=== PATIENT | male | born 1965 | race African-American/Black ===

== ENCOUNTER 2017-10-29 17:35 | Observation (INO) | payer OTHER ==
[~2017-10-29] VITALS: Ht 182.9 cm; Wt 102.5 kg
--- NOTE | 2017-10-29 17:47 | NUR ---
WHEELCHAIR TO ER ROOM 12 TO BED,EKG UPON ARRIVAL. DR CROCKER SUMMONED TO BEDSIDE
[2017-10-29] MEDS ORDERED: CIALIS10 MG PO (17:49)
[2017-10-29] MEDS ORDERED: ASPIRIN81 MG PO (17:49)
[2017-10-29] MEDS ORDERED: VERAPAMIL240 M1 PO (17:49)
--- NOTE | 2017-10-29 18:05 | NUR ---
IV ESTABLISHED, LABS DRAWN. EKG COMPLETED. PT ON CARDIAC/O2/BP MONITOR. PT C/O CHEST PAIN WHILE DRIVING DOWN [address] WAY HOME TO [facility]. STATES CP IS SHARP IN LEFT CHEST THAT RADIATES TO BACK AND SOMETIMES DOWN LEFT ARM. PT DENIES SOB. DENIES N/V/D. DENIES COUGH. LUNGS CLEAR, BREATHING EVEN & UNLABORED. ABD SOFT & NONTENDER. EYES PERRLA @3. NEUROS WNL. SKIN DRY & WARM. PULSES STRONG, CAP REFILL <3 SEC. PT AWARE HE WILL BE ADMITTED TO HOSPITAL.
[2017-10-29] MEDS ORDERED: FISH OIL1 CAP (18:12)
[2017-10-29 18:34] LABS: HEMATOCRIT 39.1 % (39.0-50.0); HEMOGLOBIN 12.8 g/dl (14.0-18.0); IMMATURE GRANULOCYTES 0.1 % (0.0-1.0); MEAN CORPUSCULAR HGB 27.8 pG CALC (26.0-32.0); MEAN CORPUSCULAR HGB CONC 32.7 g/L CALC (32.0-36.0); NEUT# 3.28 thou/uL (1.82-7.42); RED BLOOD COUNT 4.6 mill/uL (4.70-6.10); RED CELL DISTRI WIDTH 14.2 % (11.5-15.5)
[2017-10-29 18:51] LABS: ANION GAP 17 (6-22 (CALC)); BUN 12 mg/dL (9-20); BUN/CREATININE RATIO 17 (12-20 (CALC)); CARBON DIOXIDE 26 mmol/l (22-30); CHLORIDE 105 mmol/l (95-108); CREATININE 0.8 mg/dL (0.7-1.3); GFR > 60 ML/MIN (>=60 (CALC)); GFR FOR AFR.AMER. > 60 ML/MIN (>=60 (CALC)); POTASSIUM 4.5 mmol/l (3.5-5.1); SODIUM 143 mmol/l (137-146)
--- NOTE | 2017-10-29 19:02 | NUR ---
REPORT GIVEN TO DEEJAY LITTLE TO TAKE OVER CARE.
--- NOTE | 2017-10-29 19:16 | NUR ---
Pt resting comfortably at this time, awaiting admission orders & room number.
--- NOTE | 2017-10-29 19:52 | NUR ---
TELE BOX PLACED ON PT, REPORT CALLED TO [facility]AL[facility]. TRANSPORTED TO ROOM 287 VIA STRETCHER.
[2017-10-29 19:55] VITALS: BP 156/102
--- NOTE | 2017-10-29 19:55 | NUR ---
PT ARRIVED TO UNIT VIA STRETCHER WITH ER STAFF. AMBULATED TO BED INDEPENDENTLY. ALERT AND ORIENTED. CURRENTLY C/O MIDSTERNAL CHEST PAIN 3/10. STATES THAT IS WAS A 0/10 AND HAS INCREASED. RESPIRATIONS EVEN AND UNLABORED ON ROOM AIR. ORIENTED TO ROOM AND CALL LIGHT SYSTEM. VS STABLE. SAFETY MEASURES IN PLACE. CALL LIGHT WITHIN REACH.
--- NOTE | 2017-10-29 22:39 | NUR ---
PT CONTINUED TO C/O INCREASING CHEST PAIN UP TO 7/10. ADDITIONAL DOSE OF MORPHINE GIVEN IV WITH GOOD EFFECT. CURRENTLY STATES THAT PAIN IS 3/10 AND IS SLIGHTLY SHARP. RESPIRATIONS REMAIN EVEN AND UNLABORED ON ROOM AIR; 98% OXYGEN SATURATION. RESTING COMFORTABLY IN BED. ENCOURAGED TO NOTIFY NURSE OF ANY CHANGE OR WORSENING IN CHEST PAIN. STATES UNDERSTANDING. CALL LIGHT WITHIN REACH.
[2017-10-30 00:12] VITALS: BP 124/79
[2017-10-30 04:46] VITALS: BP 127/83
--- NOTE | 2017-10-30 05:15 | NUR ---
PT STATED THAT PAIN INCREASED AGAIN TO 02/21. MORPHINE GIVEN WITH F/U OF 2/10. PT HAS HAD MILD NAUSEA; GINGERALE AND CRACKERS EFFECTIVE. NO OTHER COMPLAINTS SINCE ADMISSION. USES CALL LIGHT PRN FOR NEEDS. SAFETY MEASURES IN PLACE. CALL LIGHT WITHIN REACH.
--- NOTE | 2017-10-30 07:15 | NUR ---
REPORT RECEIVED FROM DEEJAY BOYD. PT SUPINE IN BED. REPORTS RELIEF OF CHEST PAIN FROM RECENT MEDICATION WITH MORPHINE. PLAN OF CARE DISCUSSED. REPORTING OF CONCERNS ENCOURAGED. CALL LIGHT REVIEWED AND IN REACH. PT STATES UNDERSTADNING OF INFORMATION.
[2017-10-30 08:04] VITALS: BP 150/92
--- NOTE | 2017-10-30 08:36 | NUR ---
PT REPORTS RETURN OF CHEST PAIN, 5 ON SCALE OF 0-10, "SQUEZZING" SENSATION MIDSTERNAL RADIATING TO BACK. MORPHINE IV ADMINISTERED. WILL MONITOR FOR EFFECTIVENESS.
[2017-10-30 08:54] LABS: CHOLESTEROL HDL RATIO 4.3 (<4.4 (CALC))
[2017-10-30 09:26] LABS: TSH, 3RD GENERATION 2.24 uIU/mL (0.47 - 4.68)
[2017-10-30 11:03] VITALS: BP 135/87
--- NOTE | 2017-10-30 12:19 | NUR ---
PT SITTING UPRIGHT IN BED., REPORTS CHEST DISCOMFORT IS AT A 1 ON PAIN SCALE OF 0-10. STATES "ITS NOT BAD NOW."
[2017-10-30 15:27] VITALS: BP 129/86
--- NOTE | 2017-10-30 16:15 | NUR ---
PT IS RELAXING IN BED WITH N O DISTRESS NOTED. IV SITE IS FREE FROM REDNESS OR EDEMA. CONTINUE TO SHANNON AND ARIEL.
--- NOTE | 2017-10-30 16:53 | NUR ---
PT'S IV SITE DISCONTINEUD CATHETER INTACT. DISCHARGE INSTRUCTIONS GIVEN AND VERBALIZED UNDERSTANDING. CONTINUE TO OBSERVE AND MONITOR
--- NOTE | 2017-10-30 17:23 | NUR ---
Discharge instructions given. Patient verbalizes understanding of same. Discharged in stable condition via Ambulatory to Home with family. All belongings sent with pt.
== END 2017-10-30 16:48 | disposition home or self-care (01) | DRG 311 ==
LOC: ED 17:35 → ED-I 18:50 → ED 19:07 → MS2 19:08
PROVIDERS: Family Medicine; Internal Medicine; ADMIT Internal Medicine; ATTEND Internal Medicine
DX: I20.8 Other forms of angina pectoris (principal); I10 Essential (primary) hypertension; C61 Malignant neoplasm of prostate; Z79.899 Other long term (current) drug therapy

== ENCOUNTER 2019-05-18 14:35 | Observation (INO) | payer OTHER ==
[~2019-05-18] VITALS: Ht 182.9 cm; Wt 97.7 kg
[~2019-05-18 14:35] MED LIST: ASPIRIN81 MG PO; CIALIS10 MG PO; FISH OIL1 CAP; VERAPAMIL240 M1 PO
[2019-05-18] MEDS ORDERED: FLECAINIDE50 MG PO (14:59)
[2019-05-18] MEDS ORDERED: DIFICID200 MG PO (14:59)
[2019-05-18 15:38] LABS: HEMATOCRIT 34.6 % (39.0-50.0); IMMATURE GRANULOCYTES 0.2 % (0.0-5.0); MEAN CELL VOLUME 83.2 fL CALC (80.0-100.0); MEAN CORPUSCULAR HGB 26.4 pG CALC (26.0-32.0); MEAN CORPUSCULAR HGB CONC 31.8 g/L CALC (32.0-36.0); NEUT# 3.56 thou/uL (1.82-7.42); RED BLOOD COUNT 4.16 mill/uL (4.70-6.10); RED CELL DISTRI WIDTH 14.9 % (11.5-15.5)
[2019-05-18 15:57] LABS: ALBUMIN 4.2 g/dL (3.2-5.0); ALKALINE PHOSPHATASE 62 u/l (38-126); AMYLASE 123 u/l (30-110); ANION GAP 13 (6-22 (CALC)); BILIRUBIN, TOTAL 0.4 mg/dL (0.0-1.4); BUN 10 mg/dL (9-20); BUN/CREATININE RATIO 12 (12-20 (CALC)); CARBON DIOXIDE 24 mmol/l (22-30); CHLORIDE 107 mmol/l (95-108); CREATININE 0.8 mg/dL (0.7-1.3); GFR > 60 ML/MIN (>=60 (CALC)); GFR FOR AFR.AMER. > 60 ML/MIN (>=60 (CALC)); LIPASE 136 u/l (23-300); POTASSIUM 4.1 mmol/l (3.5-5.1); SGOT/AST 29 u/l (17-59); SODIUM 140 mmol/l (137-146); TOTAL PROTEIN 8.2 g/dL (6.3-8.2)
[2019-05-18 16:08] LABS: MYOGLOBIN 26 ng/mL (0 - 121)
[2019-05-18 18:14] VITALS: BP 146/97
[2019-05-18 20:05] VITALS: BP 125/78
[2019-05-18 23:00] VITALS: BP 125/81
[2019-05-19 03:55] VITALS: BP 127/80
[2019-05-19 05:30] VITALS: BP 156/89
[2019-05-19 05:34] LABS: CHOLESTEROL HDL RATIO 4.6 (<4.4 (CALC)); MAGNESIUM 1.8 mg/dL (1.6-2.3)
[2019-05-19 07:00] VITALS: BP 140/98
== END 2019-05-19 09:15 | disposition home or self-care (01) | DRG 309 ==
LOC: ED 14:35 → ED-I 16:54 → ED 17:04 → MS2 17:05 → ICU 05-19 04:48
PROVIDERS: Family Medicine; ADMIT Internal Medicine; ATTEND Internal Medicine
DX: I47.2 Ventricular tachycardia (principal); Q24.5 Malformation of coronary vessels; R00.8 Other abnormalities of heart beat; I10 Essential (primary) hypertension; Z85.46 Personal history of malignant neoplasm of prostate
CPT/HCPCS: Q9967